=== PATIENT | male | born 1970 | race Caucasian/White ===

== ENCOUNTER 2019-05-08 19:29 | Inpatient (IN) | payer MEDICAID ==
[~2019-05-08] VITALS: Ht 170.2 cm; Wt 72.1 kg
[2019-05-08 19:57] VITALS: BP 143/86
[2019-05-08] MEDS ORDERED: ASPIRIN 81 MG TAB.CHEW PO ONE (20:10)
--- NOTE | 2019-05-08 20:15 | NUR ---
PT AMBULATED TO BED 11
--- NOTE | 2019-05-08 20:20 | NUR ---
EKG PERFORMED AT BEDSIDE
[2019-05-08 20:31] LABS: BASOPHILS % (AUTO) 0.2 % (0.0-2.0); EOSINOPHILS # (AUTO) 0.3 K/uL (0-0.4); EOSINOPHILS % (AUTO) 3.9 % (0.0-4.0); HEMATOCRIT 44.6 % (36-52); HEMOGLOBIN 14.8 g/dL (12.0-18.0); LYMPHOCYTES # (AUTO) 1.2 K/uL (2.0-11.5); LYMPHOCYTES % (AUTO) 17.1 % (20.5-51.1); MEAN CORPUSCULAR HEMOGLOBIN 29 pg (27-31); MEAN CORPUSCULAR HGB CONC 33 g/dL (33-37); MONOCYTES # (AUTO) 0.8 K/uL (0.8-1.0); MONOCYTES % (AUTO) 11.2 % (1.7-9.3); NEUTROPHILS # (AUTO) 4.9 K/uL (1.8-7.7); NEUTROPHILS % (AUTO) 67.6 % (42.2-75.2); PLATELET COUNT (AUTO) 202 K/uL (140-450); RED BLOOD CELL COUNT(AUTO) 5.18 MIL/uL (4.20-6.10); RED CELL DISTRIBUTION WIDTH 13.7 % (11.6-13.7); WHITE BLOOD COUNT (AUTO) 7.3 K/uL (4.8-10.8)
[2019-05-08 20:45] LABS: ANION GAP 13.6 (8-16); CARBON DIOXIDE 26.5 mmol/L (21-32); POTASSIUM 4.1 mmol/L (3.5-5.1)
--- NOTE | 2019-05-08 20:45 | NUR ---
BIB SELF WITH REPORTS OF GETTING SHORT OF BREATH AFTER WALKING SHORT DISTANCE AND CHEST PAIN FOR THE LAST 2 WEEKS. STATES FOR THE PAST TWO DAYS IT HAS BEEN GETTING WORSE MAXX. WHEN HE COUGHS. PT AAO X4, GCS 15, ABLE TO SPEAK WITH FULL COMPLETE SENTENCES. RESPIATIONS EVEN AND UNLABORED, BL LUNG CLEAR. C/O NON PRODUCTIVE COUGH. SKIN WARM/PINK/DRY, +PMSC. ABDOMEN SOFT, NON DISTENDED, ACTIVE [place] SOUND X4. MCAT TUTOR SR, BP WNL. ED PROVIDER MADE AWARE OF PT STATUS. WILL CONTINUE TO MONITOR
[2019-05-08] MEDS ORDERED: predniSONE 20 MG TAB PO ONE (21:05)
[2019-05-08] MEDS ORDERED: ALBUTEROL SULFATE/IPRATROPIU 3 ML SOL IH ONE (21:05)
[2019-05-08] MEDS ORDERED: KETOROLAC 30 MG/ML VIAL IVP ONE (21:05)
[2019-05-08] MEDS ORDERED: NITROGLYCERIN 0.4 MG TAB SL ONE (21:50)
[2019-05-08] MEDS ORDERED: ZOLPIDEM 5 MG TAB PO PRN (22:00)
[2019-05-08] MEDS ORDERED: ACETAMINOPHEN 325 MG TAB PO PRN (22:00)
[2019-05-08] MEDS ORDERED: LORazepam 2 MG/ML VIAL IM/IVP PRN (22:00)
[2019-05-08] MEDS ORDERED: ONDANSETRON 4 MG/2 ML VIAL IM/IVP PRN (22:00)
[2019-05-08] MEDS ORDERED: DOCUSATE SODIUM 100 MG GELCAP PO PRN (22:00)
[2019-05-08] MEDS ORDERED: IBUP-2213 PO (22:11)
--- NOTE | 2019-05-08 22:16 | NUR ---
NTG 0.4 MG SL GIVEN BP 146/80 HR 95
--- NOTE | 2019-05-08 22:21 | NUR ---
CP NOT RELIEVED 2ND DOSE NTG 0.4 MG SL GIVEN, BP 122/82, HR 102
--- NOTE | 2019-05-08 22:26 | NUR ---
CP NOT RELIEVED 3RD DOSE OF NTG 0.4 MG SL GIVEN, BP 105/75, HR 108
[2019-05-08 22:38] LABS: PROTHROMBIN TIME 9.7 secs (10.8-13.4)
--- NOTE | 2019-05-08 22:42 | NUR ---
Patient will be admitted to care of . Admited to TELEMETRY. Will go to [email or web address]. Belongings list completed. Report to AROLDO.
[2019-05-08 22:50] VITALS: BP 130/76
--- NOTE | 2019-05-08 22:50 | NUR ---
ADMITTED A 48 YEAR OLD MALE FROM ED VIA GURNEY. RECEIVED REPORT FROM ED NURSE. PATIENT ALERT AND ORIENTED X4. NO APPARENT DISTRESS NOTED. WITH C/O CHEST PAIN 6/10. WILL MEDICATE PER PAIN SCALE. SAFETY ENSURED. AMBULATORY TO THE BATHROOM WITH STAND BY ASSIST. WITH IV ON RIGHT HAND 18G. ON SALINE LOCK. INTRODUCED SELF AND UPDATED BOARD. REVIEWED PLAN OF CARE WITH PATIENT. VERBALIZED UNDERSTANDING. ORIENTED TO ROOM, CALL LIGHT, HOSPITAL ROUTINE AND ENVIRONMENT. WILL CONTINUE TO MONITOR. V/S=130/76, 98% ON ROOM AIR, 98, 99.1 AND 20.
[2019-05-08] MEDS ORDERED: KETOROLAC 15 MG/ML VIAL IVP PRN (22:55)
[2019-05-08] MEDS: NACL 0.9% 1,000 ML IV SCH (23:04)
[2019-05-08 23:13] LABS: ALBUMIN 4.3 g/dL (3.4-5.0); MAGNESIUM 2.1 mg/dL (1.8-2.4); PHOSPHORUS 3.8 mg/dL (2.5-4.9); THYROID STIMULATING HORMONE 2.14 uIU/mL (0.34-3.74); TOTAL BILIRUBIN 0.7 mg/dL (0.0-1.0)
[2019-05-08 23:29] LABS: BILIRUBIN,DIRECT 0.2 mg/dL (0.0-0.3)
[2019-05-08] MEDS: HYDROcodone/APAP 5/325 MG 1 TAB TAB PO PRN (23:29)
--- NOTE | 2019-05-08 23:55 | NUR ---
PATIENT WENT OFF OF UNIT FOR CT SCAN. LEFT IN STABLE CONDITION.
[2019-05-09] VITALS: BP 120/72
--- NOTE | 2019-05-09 00:15 | NUR ---
PATIENT CAME BACK FROM CT SCAN IN STABLE CONDITION.
[2019-05-09 00:44] LABS: APPEARANCE,URINE CLEAR (CLEAR); BILIRUBIN,URINE NEGATIVE (NEGATIVE); BLOOD, URINE NEGATIVE (NEGATIVE); COLOR,URINE YELLOW (YELLOW); LEUKOCYTE ESTERASE ,URINE NEGATIVE (NEGATIVE); NITRITE, URINE NEGATIVE (NEGATIVE); UGLUCOSE NEGATIVE (NEGATIVE)
[2019-05-09 00:48] LABS: BARBITURATE, URINE NEG. ng/ml (NEG <=200); BENZODIAZEPINE, URINE NEG. ng/mL (NEG <=200); CANNABINOID, URINE POS. ng/mL (NEG <=50); COCAINE, URINE NEG. ng/mL (NEG <=300); OPIATE, URINE NEG. ng/mL (NEG <=2000); PHENCYCLIDINE SCREEN,URINE NEG. ng/mL (NEG <=25)
--- NOTE | 2019-05-09 01:30 | NUR ---
PATIENT AWAKE IN BED, WATCHING TV. NO APPARENT DISTRESS NOTED. WILL CONTINUE TO MONITOR.
[2019-05-09] MEDS ORDERED: ALUMINUM HYD/MAG/SIMETHICONE 30 ML UDC PO SCH ×2 (02:00→20:45)
[2019-05-09] MEDS: MORPHINE SULFATE 2 MG/ML SYR IVP PRN ×4 (02:49→23:16)
--- NOTE | 2019-05-09 03:00 | NUR ---
ADMITTED A 48 YEAR OLD MALE FROM ED VIA GURNEY. RECEIVED REPORT FROM ED NURSE. PATIENT ALERT AND ORIENTED X4. NO APPARENT DISTRESS NOTED. WITH C/O CHEST PAIN 10/22. WILL MEDICATE PER PAIN SCALE. SAFETY ENSURED. AMBULATORY TO THE BATHROOM WITH STAND BY ASSIST. WITH IV ON RIGHT HAND 18G. ON SALINE LOCK. INTRODUCED SELF AND UPDATED BOARD. REVIEWED PLAN OF CARE WITH PATIENT. VERBALIZED UNDERSTANDING. ORIENTED TO ROOM, CALL LIGHT, HOSPITAL ROUTINE AND ENVIRONMENT. WILL CONTINUE TO MONITOR. V/S=130/76, 98% ON ROOM AIR, 98, 99.1 AND 20. Addendum: 05/09/19 at 0308 by Sebastián Bermudez RN NOTE ENTERED AT WRONG TIME. NOTE IS FOR 05/08/19 3094
--- NOTE | 2019-05-09 03:13 | NUR ---
PATIENT AWAKE IN BED, RESTING. NO APPARENT DISTRESS NOTED. WILL CONTINUE TO MONITOR.
[2019-05-09 04:00] VITALS: BP 110/69
--- NOTE | 2019-05-09 05:10 | NUR ---
PATIENT AWAKE IN BED. NO APPARENT DISTRESS NOTED. WILL CONTINUE TO MONITOR.
[2019-05-09 06:02] LABS: BASOPHILS % (AUTO) 0.1 % (0.0-2.0); HEMATOCRIT 40.8 % (36-52); HEMOGLOBIN 13.4 g/dL (12.0-18.0); LYMPHOCYTES # (AUTO) 0.4 K/uL (2.0-11.5); LYMPHOCYTES % (AUTO) 5.6 % (20.5-51.1); MEAN CORPUSCULAR HEMOGLOBIN 28 pg (27-31); MEAN CORPUSCULAR HGB CONC 33 g/dL (33-37); MEAN CORPUSCULAR VOLUME 86.1 fL (80-94); MONOCYTES # (AUTO) 0.2 K/uL (0.8-1.0); MONOCYTES % (AUTO) 2.4 % (1.7-9.3); NEUTROPHILS % (AUTO) 91.9 % (42.2-75.2); PLATELET COUNT (AUTO) 200 K/uL (140-450); RED BLOOD CELL COUNT(AUTO) 4.73 MIL/uL (4.20-6.10); RED CELL DISTRIBUTION WIDTH 13.4 % (11.6-13.7); WHITE BLOOD COUNT (AUTO) 6.6 K/uL (4.8-10.8)
[2019-05-09] MEDS: HYDROcodone/APAP 5/325 MG 1 TAB TAB PO PRN ×2 (06:13→12:08)
[2019-05-09] MEDS: PANTOPRAZOLE 40 MG TABEC PO SCH (06:14)
--- NOTE | 2019-05-09 07:05 | NUR ---
ENDORSED TO NEXT SHIFT FOR CONTINUITY OF CARE.
[2019-05-09 07:06] LABS: ANION GAP 18.4 (8-16); CARBON DIOXIDE 22.9 mmol/L (21-32); POTASSIUM 5.3 mmol/L (3.5-5.1)
[2019-05-09 07:11] LABS: MAGNESIUM 2.1 mg/dL (1.8-2.4); PHOSPHORUS 2.1 mg/dL (2.5-4.9)
--- NOTE | 2019-05-09 07:20 | NUR ---
RECEIVED BEDSIDE REPORT FROM LABORATORY SECRETARY NURSE, PT IS AWAKE AND ALERT, NO S/S OF ACUTE DISTRESS OR C/O PAIN. PT IS ON ROOM AIR, SKIN INTACT. IV SITE R FA 18 G, INFUSING NS 60 ML/HR. FALL PRECAUTIONS IN PLACE, HOWEVER, PT IS ABLE TO AMBULATE. CALL LIGHT IS WITHIN REACH. WILL CONTINUE TO MONITOR.
[2019-05-09 08:00] VITALS: BP 114/61
--- NOTE | 2019-05-09 08:02 | NUR ---
PT IS HAVING ABD US AT THIS TIME.
--- NOTE | 2019-05-09 08:51 | NUR ---
PT SEEN BY DR ESTRADA
[2019-05-09] MEDS: LISINOPRIL 5 MG TAB PO SCH (08:58)
[2019-05-09] MEDS: ASPIRIN 81 MG TAB.CHEW PO SCH (08:59)
[2019-05-09] MEDS: METOPROLOL 25 MG TAB PO SCH ×2 (08:59→20:23)
--- NOTE | 2019-05-09 09:06 | NUR ---
PATIENT HAS BEEN SCREENED AND CATEGORIZED LOW NUTRITION RISK. PATIENT WILL BE SEEN WITHIN 5-7 DAYS OF ADMISSION. 05/13/19-05/15/[address]
[2019-05-09] MEDS ORDERED: CRUSHER, PILL MC ONE (09:11)
--- NOTE | 2019-05-09 09:24 | NUR ---
AM MEDS ADMINISTERED, PT TOLERATED WELL. PT WAS C/O 8/10 ABD PAIN AND HEADACHE, PRN IV MORPHINE ADMINISTERED. WILL REASSESS WITHIN AN HOUR
[2019-05-09] MEDS ORDERED: SODIUM POLYSTYRENE 15 GM/60 ML UDBTL PO SCH ×2 (09:55→11:55)
[2019-05-09] MEDS ORDERED: SODIUM PHOSPHATE 15 MMOLE in NACL 0.9% 250 ML IV ONE (10:30)
[2019-05-09] MEDS ORDERED: ALBUTEROL SULFATE/IPRATROPIU 3 ML SOL IH PRN (11:35)
[2019-05-09] MEDS ORDERED: methylPREDNISolone SS 40 MG/ML VIAL IVP SCH (11:52)
[2019-05-09 12:00] VITALS: BP 120/81
--- NOTE | 2019-05-09 12:59 | NUR ---
[employer] [employer] Note: Basic Screen: Yes High Risk DC Screen [place]: BRYAN Hooper Relationship: FRIEND Pre-Admission Living Arrangements: Lives with Other Prior ADL Independent Current Home Health Name/Tel: N/A Current DME/02 Name/Tel: N/A Current Hospice Name/Tel: N/A Current Dialysis Name/Tel: N/A Healthcare Decision Maker: Patient Advance Directive No - REFUSED Physician Orders for Life Sustaining Treatment Form No Patient/Family Have Educational Needs No Information Taught: Advance Directive Person Taught: Patient Teaching Tools: Verbal Factors Affecting Learning: None Participation Level: Refused Evaluation: Verbalizes Understanding Needs Additional Education: No Discipline: Case Mgt/Social Svcs Tentative Discharge Plan/Destination: No Needs Identified Will require assistance post discharge: No Referred to [employer] Finisher: No Tentative Discharge Plan Summary: Patient is a 48-year-old male admitted for chest pain. Patient has no significant PMHX. Patient was admitted from home, where he rents a room with roommates. SW met with patient at bedside to verify demographics. Patient reports no history of mental health. Patient reports drinking alcohol 1x a month and reports no other substance use. Patient stated that he has no PCP and requested resources. SW provided low cost clinics resources to patient. SW provided education on advanced directive, but patient refused. Patient's tentative discharge plan is to return home. No further needs identified. Signature: ELDER Castillo Date: May 09, 2019 Time: 12:56
--- NOTE | 2019-05-09 13:01 | NUR ---
OBTAINED PT'S CONSENT FOR CT CHEST WITH CONTRAST.
[2019-05-09] MEDS: ALBUTEROL SULFATE/IPRATROPIU 3 ML SOL IH SCH ×2 (13:38→19:40)
--- NOTE | 2019-05-09 13:51 | NUR ---
PT TAKEN OFF UNIT FOR CHEST CT WITH CONTRAST.
--- NOTE | 2019-05-09 14:50 | NUR ---
GOT A CALL FROM RADIOLOGY, THEY COULD NOT DO IV CONTRAST CT SCAN BECAUSE PT'S IV HAS MALFUNCTIONED. WILL START A NEW IV SITE AND ATTEMPT CT SCAN AGAIN.
--- NOTE | 2019-05-09 15:03 | NUR ---
DC PLANNING 48 YRS OLD MALE PATIENT WAS ADMITTED FROM HOME WITH A DX OF CHEST PAIN R/O ACS . PT HAS A HX OF HTN AND ALCOHOL ABUSE. AMBULATORY AT BASELINE TROPX3 (-) , EKG SINUS RHYTHM RT PROTOCOL INITIATED CT HEAD (-) SEEN BY DATA ACQUISITION TECHNICIAN DR DUMONT RECOMMENDED FOLLOW UP ECHO AND CT CHEST , PULMO CONSULT ORDERED . DC PLAN TO GO HOME WHEN STABLE .CM TO FOLLOW.
--- NOTE | 2019-05-09 15:35 | NUR ---
STARTED NEW IV ON L AC, 20 G.
[2019-05-09 16:00] VITALS: BP 128/75
[2019-05-09] MEDS: NACL 0.9% 1,000 ML IV SCH (16:01)
--- NOTE | 2019-05-09 17:00 | NUR ---
PT TAKEN TO CT CHEST/ABD/PELVIS WITH IV CONTRAST.
--- NOTE | 2019-05-09 17:45 | NUR ---
PT BACK FROM CT SCAN AND PLACED ON A CARDIAC DIET. WILL ORDER LATE DINNER TRAY FOR PT.
--- NOTE | 2019-05-09 19:20 | NUR ---
ENDORSED PT TO INDUSTRIAL CONVEYOR BELT REPAIRER NURSE IN STABLE CONDITION
--- NOTE | 2019-05-09 19:22 | NUR ---
REPORT RECEIVED FROM AM NURSE AT BEDSIDE. PT IN STABLE CONDITION. AAOX4. INTRODUCED SELF TO PT. BOARD UPDATED. NO COMPLAINT OF PAIN. ALREADY MEDICATED. NO SOB. AFEBRILE. PT IS AMBULATORY. IV SITE L AC 20G RUNNING NS@60ML/HR PATENT AND INTACT. SKIN WARM, DRY, AND INTACT WITH NO OPEN WOUNDS. BED LOCKED IN LOW POSITION. CALL REYNOSO WITHIN REACH. SAFETY PRECAUTION IN PLACE. ALL NEEDS MET AT THIS TIME.
[2019-05-09 20:00] VITALS: BP 115/72
[2019-05-09] MEDS: NITROGLYCERIN 0.4 MG TAB SL PRN ×2 (20:09→20:14)
--- NOTE | 2019-05-09 20:09 | NUR ---
PT COMPLAINING OF CHEST PAIN. NITROSTAT GIVEN. PT TOLERATED WELL.
--- NOTE | 2019-05-09 20:14 | NUR ---
PT STILL COMPLAINING OF CHEST PAIN. SECOND DOSE OF NITROSTAT GIVEN. PT TOLERATED WELL.
[2019-05-09] MEDS: ATORVASTATIN 20 MG TAB PO SCH (20:22)
[2019-05-09] MEDS: methylPREDNISolone SS 40 MG/ML VIAL IVP SCH (20:22)
--- NOTE | 2019-05-09 20:22 | NUR ---
LIPITOR AND LOPRESSOR GIVEN PO. SOLUMEDROL GIVEN IVP. HEPARIN GIVEN SUBQ. PT TOLERATED WELL.
--- NOTE | 2019-05-09 20:30 | NUR ---
NOTIFIED OF CHEST PAIN. NEW ORDERS STAT EKG. STAT TROPONIN. ONE TIME ORDER FOR TORADOL.
[2019-05-09] MEDS ORDERED: KETOROLAC 30 MG/ML VIAL IVP SCH (20:35)
--- NOTE | 2019-05-09 20:46 | NUR ---
TORADOL GIVEN FOR 10/10 CHEST PAIN. PT TOLERATED WELL.
--- NOTE | 2019-05-09 22:13 | NUR ---
MAALOX GIVEN PO. PT TOLERATED WELL.
--- NOTE | 2019-05-09 23:16 | NUR ---
MORPHINE GIVEN FOR 8/10 CHEST PAIN. PT TOLERATED WELL.
[2019-05-10] VITALS: BP 105/70
--- NOTE | 2019-05-10 01:30 | NUR ---
PT SLEEPING COMFORTABLY BUT AROUSABLE. NO S/S OF DISTRESS NOTED. NO COMPLAINTS OF PAIN. NO SOB. AFEBRILE. WILL CONTINUE TO MONITOR.
--- NOTE | 2019-05-10 03:30 | NUR ---
PT SLEEPING COMFORTABLY BUT AROUSABLE. NO S/S OF DISTRESS NOTED. VS STABLE. TELE MONITORING. WILL CONTINUE TO MONITOR.
[2019-05-10 04:00] VITALS: BP 104/61
--- NOTE | 2019-05-10 04:45 | NUR ---
PT SLEEPING COMFORTABLY BUT AROUSABLE. NO S/S OF DISTRESS NOTED. RESPIRATIONS EVEN, UNLABORED, AND WNL. WILL CONTINUE TO MONITOR.
[2019-05-10] MEDS ORDERED: BENZOCAINE/MENTHOL 1 LOZ MM PRN (05:25)
[2019-05-10] MEDS: PANTOPRAZOLE 40 MG TABEC PO SCH (05:31)
--- NOTE | 2019-05-10 05:31 | NUR ---
PROTONIX GIVEN PO. NORCO GIVEN FOR 5/10 MIDDLE BACK PAIN. PT TOLERATED WELL. CEPACOL GIVEN FOR A SORE THROAT.
[2019-05-10] MEDS: HYDROcodone/APAP 5/325 MG 1 TAB TAB PO PRN ×2 (05:32→14:19)
[2019-05-10 06:20] LABS: HEMATOCRIT 40.2 % (36-52); HEMOGLOBIN 13.2 g/dL (12.0-18.0); LYMPHOCYTES # (AUTO) 0.8 K/uL (2.0-11.5); LYMPHOCYTES % (AUTO) 11.5 % (20.5-51.1); MEAN CORPUSCULAR HEMOGLOBIN 28 pg (27-31); MEAN CORPUSCULAR HGB CONC 33 g/dL (33-37); MONOCYTES # (AUTO) 0.4 K/uL (0.8-1.0); MONOCYTES % (AUTO) 5.9 % (1.7-9.3); NEUTROPHILS # (AUTO) 5.5 K/uL (1.8-7.7); NEUTROPHILS % (AUTO) 82.6 % (42.2-75.2); PLATELET COUNT (AUTO) 212 K/uL (140-450); RED BLOOD CELL COUNT(AUTO) 4.68 MIL/uL (4.20-6.10); RED CELL DISTRIBUTION WIDTH 13.8 % (11.6-13.7); WHITE BLOOD COUNT (AUTO) 6.7 K/uL (4.8-10.8)
[2019-05-10 06:29] LABS: ANION GAP 16.9 (8-16); CARBON DIOXIDE 24.2 mmol/L (21-32); POTASSIUM 4.1 mmol/L (3.5-5.1)
[2019-05-10 06:35] LABS: MAGNESIUM 2.1 mg/dL (1.8-2.4); PHOSPHORUS 3.7 mg/dL (2.5-4.9)
--- NOTE | 2019-05-10 06:55 | NUR ---
PT AWAKE AND ALERT WATCHING TV. PT IN STABLE CONDITION.
--- NOTE | 2019-05-10 07:10 | NUR ---
RECEIVED REPORT FROM NIGHT NURSE. PATIENT IS FULL CODE, NKA, AMBULATORY, AAOX4, PATIENT IS ON ROOM AIR, AWAKE IN BED, NO SIGNS OF RESPIRATORY DISTRESS. IV LEFT AC 20G WITH NS INFUSING AT 60MLS/HR. WILL REVIEW AND CONTINUE WITH THE PLAN OF CARE FOR THE DAY.
[2019-05-10] MEDS: ALBUTEROL SULFATE/IPRATROPIU 3 ML SOL IH SCH ×3 (07:27→20:10)
[2019-05-10 08:00] VITALS: BP 128/78
[2019-05-10] MEDS: NACL 0.9% 1,000 ML IV SCH (08:20)
[2019-05-10] MEDS: LISINOPRIL 5 MG TAB PO SCH (08:39)
[2019-05-10] MEDS: ASPIRIN 81 MG TAB.CHEW PO SCH (08:40)
[2019-05-10] MEDS: methylPREDNISolone SS 40 MG/ML VIAL IVP SCH ×2 (08:42→21:06)
[2019-05-10] MEDS: METOPROLOL 25 MG TAB PO SCH ×2 (08:42→21:07)
--- NOTE | 2019-05-10 08:50 | NUR ---
ADMINISTERED MEDS TO PATIENT. PO MEDS TOLERATED WELL. ADMINISTERED MORPHINE FOR PAIN 11/21. BP IS 128/78. WILL CONTINUE MONITORING
[2019-05-10] MEDS: MORPHINE SULFATE 2 MG/ML SYR IVP PRN ×2 (08:57→18:37)
[2019-05-10 12:00] VITALS: BP 115/77
--- NOTE | 2019-05-10 13:40 | NUR ---
BEATRIZ VINCENT IN ECHO WITH BUBBLE STUDIES. PATIENT IS SITTING UP IN BED, NO COMPLAINTS AT THIS TIME.
--- NOTE | 2019-05-10 14:20 | NUR ---
PT COMPLAINED OF CHEST PAIN 10/22. OFFERED NITROSTAT BUT PATIENT REQUESTED NORCO FOR THE PAIN. WILL RE ASSESS PAIN LEVEL.
[2019-05-10 16:00] VITALS: BP 132/72
[2019-05-10] MEDS ORDERED: AZITHROMYCIN 250 MG TAB PO SCH (18:00)
[2019-05-10] MEDS: guaiFENesin DM 200/20 MG-10 ML 10 ML UDC PO PRN (18:37)
--- NOTE | 2019-05-10 18:43 | NUR ---
ADMINISTERED EVENING MEDS. GAVE PRN ROBITUSSIN FOR COUGH AND MORPHINE FOR PAIN 11/21. WILL REASSESS PAIN LEVEL AND ENDORSED TO THE NEXT NURSE FOR CONTINUITY OF CARE.
--- NOTE | 2019-05-10 19:11 | NUR ---
RECIEVED PT AAOX4. NID , IV SITE INTACT AND PATENT. ON DIRECTOR MEDICAL SURGICAL. NO S/SXS OF ACUTE DISTRESS NOTED AT THIS TIME. PLAN OF CARE DISCUSSED AND VERBALIZED UNDERSTANDING. ON SAFETY PRECAUTION PROTOCOL - CALL LIGHT WITHIN REACH. REQUESTING FOR A SHOWER TONIGHT - WILL REFER TO BULMARO Zaragoza
--- NOTE | 2019-05-10 19:30 | NUR ---
ALTHOUGH BULMARO ALLOW PT. TO HAVE A SHOWER , BUT THE RESPIRATORY SAID IS NOT PREFERABLE THE PT. TO HAVE A SHOWER BECAUSE THERE IS WHEEZES ON LUNG UPON CHEST AUSCULTATION - EXPLAINED TO PT. - DEFER TO HAVE A SHOWER - THE POTTERY MACHINE OPERATOR WILL GIVE SPOUNGE BATH INSTEAD . WILL CONT. TO MONITOR.
--- NOTE | 2019-05-10 19:45 | NUR ---
RECEIVED REPORT FROM RICHARD WILLIAMSON FOR CONTINUITY OF CARE. PATIENT IN STABLE CONDITION. WILL CONTINUE TO MONITOR.
--- NOTE | 2019-05-10 19:45 | NUR ---
ENDORSED TO NARCISO FOR CONT. OF CARE , WITH STABLE CONDITION.
[2019-05-10 20:00] VITALS: BP 127/70
[2019-05-10] MEDS: BUDESONIDE 0.5 MG/2 ML NEBU INH SCH (20:10)
[2019-05-10] MEDS: ATORVASTATIN 20 MG TAB PO SCH (21:07)
--- NOTE | 2019-05-10 21:16 | NUR ---
PATIENT SITTING IN BED WITH COMPLAINTS OF ANXIETY AFTER BREATHING TREATMENT. ATIVAN GIVEN AT THIS TIME AND OTHER SCHEDULED MEDICATIONS DUE GIVEN. WILL CONTINUE TO MONITOR.
[2019-05-11] VITALS: BP 114/65
[2019-05-11] MEDS: NACL 0.9% 1,000 ML IV SCH ×2 (00:47→06:51)
[2019-05-11] MEDS: HYDROcodone/APAP 5/325 MG 1 TAB TAB PO PRN ×3 (00:48→14:01)
[2019-05-11] MEDS: guaiFENesin DM 200/20 MG-10 ML 10 ML UDC PO PRN (00:48)
--- NOTE | 2019-05-11 00:52 | NUR ---
PATIENT LYING DOWN IN BED USING HIS PHONE. NO DISTRESS NOTED. COMPLAINS OF PAIN, NORCO GIVEN AT THIS TIME. COUGH MEDICATION ALSO GIVEN AT THIS TIME DUE TO COUGH. WILL CONTINUE TO MONITOR.
[2019-05-11] MEDS ORDERED: INFLUENZA VACCINE QUAD 0.5 ML SYR IMVAC PRN (01:10)
--- NOTE | 2019-05-11 02:30 | NUR ---
PATIENT LYING DOWN IN BED SLEEPING, AROUSABLE BY VOICE. CONDITION UNCHANGED. WILL CONTINUE TO MONITOR.
[2019-05-11 04:00] VITALS: BP 109/63
--- NOTE | 2019-05-11 04:15 | NUR ---
PATIENT LYING DOWN IN BED SLEEPING, AROUSABLE BY VOICE. NO DISTRESS NOTED. CONDITION UNCHANGED. DENIES PAIN. WILL CONTINUE TO MONITOR.
[2019-05-11] MEDS: PANTOPRAZOLE 40 MG TABEC PO SCH (05:45)
--- NOTE | 2019-05-11 05:46 | NUR ---
PATIENT LYING DOWN IN BED SLEEPING, AROUSABLE BY VOICE. NO DISTRESS NOTED. DENIES ANY PAIN. SCHEDULED MEDICATIONS DUE GIVEN. WILL CONTINUE TO MONITOR.
--- NOTE | 2019-05-11 07:20 | NUR ---
RECEIVED BEDSIDE REPORT FROM REGISTERED DIETITIAN NURSE NARCISO, PT IS AWAKE AND ALERT, NO S/S OF ACUTE DISTRESS OR SOB. PT IS ON ROOM AIR, SKIN INTACT. IV SITE L AC 18 G, INFUSING NS 60 ML/HR. FALL PRECAUTIONS IN PLACE. CALL LIGHT IS WITHIN REACH.
[2019-05-11] MEDS: ALBUTEROL SULFATE/IPRATROPIU 3 ML SOL IH SCH ×2 (07:22→13:13)
[2019-05-11] MEDS: BUDESONIDE 0.5 MG/2 ML NEBU INH SCH (07:22)
--- NOTE | 2019-05-11 07:27 | NUR ---
GAVE REPORT TO AM SHIFT NURSE FOR CONTINUITY OF CARE. PATIENT IN STABLE CONDITION.
[2019-05-11 08:00] VITALS: BP 132/86
[2019-05-11] MEDS ORDERED: CRUSHER, PILL MC ONE (09:03)
[2019-05-11] MEDS: methylPREDNISolone SS 40 MG/ML VIAL IVP SCH (09:04)
[2019-05-11] MEDS: LISINOPRIL 5 MG TAB PO SCH (09:05)
[2019-05-11] MEDS: METOPROLOL 25 MG TAB PO SCH (09:05)
[2019-05-11] MEDS: ASPIRIN 81 MG TAB.CHEW PO SCH (09:05)
--- NOTE | 2019-05-11 09:18 | NUR ---
AM MEDS ADMINISTERED, PT TOLERATED WELL. ADMINISTERED THE PRN NORCO FOR PAIN 10/22
[2019-05-11] MEDS ORDERED: ALBU0.0912 IH (11:39)
[2019-05-11] MEDS ORDERED: METH4TAB1 PO (11:39)
[2019-05-11] MEDS ORDERED: AZIT250T3 PO (11:39)
[2019-05-11 12:00] VITALS: BP 121/72
--- NOTE | 2019-05-11 13:17 | NUR ---
PT GETTING A BREATHING TX AT THIS TIME.
--- NOTE | 2019-05-11 16:30 | NUR ---
PT HAS DC'D. PT WAS GIVEN DC INSTRUCTIONS AND EXPLANATION OF HIS PRESCRIPTIONS. HE VERBALIZED UNDERSTANDING OF TEACHING, AND HAD NO EXTRA QUESTIONS. IV SITE AND WRIST BAND WERE REMOVED. PT WAS GIVEN A FLU SHOT UPON DC. PT LEFT WITH HIS SON WITH ALL HIS BELONGINGS, IN STABLE CONDITION.
[2019-05-11] MEDS ORDERED: AZITHROMYCIN 250 MG TAB PO SCH ×2 (17:00→18:00)
== END 2019-05-11 16:30 | disposition home or self-care (01) | DRG 140 ==
LOC: MED 19:29 → MTU 21:56
PROVIDERS: ADMIT General Practice; ATTEND General Practice
DX: J44.1 Chronic obstructive pulmonary disease with (acute) exacerbation (principal); E83.39 Other disorders of phosphorus metabolism; K76.0 Fatty (change of) liver, not elsewhere classified; M94.0 Chondrocostal junction syndrome [Tietze]; R51 Headache; J40 Bronchitis, not specified as acute or chronic; E87.5 Hyperkalemia; F12.10 Cannabis abuse, uncomplicated; N28.1 Cyst of kidney, acquired; I10 Essential (primary) hypertension; Z87.891 Personal history of nicotine dependence; Z23 Encounter for immunization; Z79.899 Other long term (current) drug therapy; Z71.51 Drug abuse counseling and surveillance of drug abuser
CPT/HCPCS: 36415; 36600; 70450; 71046; 71270; 76700; 80048; 80076; 80305; 81003; 82803; 83036; 83690; 83735; 84100; 84134; 84443; 84484; 85025; 85610; 85730; 87081; 87804; 93005; 94640; 96372; 99285; G0482; J1644; J1885; J2060; J2270; J2920; J7030; J7512; J7620; J7626; Q0092; Q9967

== ENCOUNTER 2019-05-13 15:27 | Emergency (ER) | payer MEDICAID ==
[~2019-05-13] VITALS: Ht 170.2 cm; Wt 72.6 kg
[~2019-05-13 15:27] MED LIST: ALBU0.0912 IH; AZIT250T3 PO; IBUP-2213 PO; METH4TAB1 PO
[2019-05-13 15:38] VITALS: BP 134/88
--- NOTE | 2019-05-13 15:47 | NUR ---
[facility]
--- NOTE | 2019-05-13 16:11 | NUR ---
AMB TO BED 06 WITH EVEN STEADY GAIT
--- NOTE | 2019-05-13 16:14 | NUR ---
AAO X4 48 YR OLD M W/ C/O GENERALIZED AB PAIN WITH DIARRHEA. ABDOMEN FIRM TO TOUCH ADMITTED ON April PMH- COPD, KIDNEY DISEASE
[2019-05-13 16:25] LABS: BASOPHILS % (AUTO) 0.3 % (0.0-2.0); EOSINOPHILS % (AUTO) 0.2 % (0.0-4.0); HEMATOCRIT 44.8 % (36-52); LYMPHOCYTES % (AUTO) 13.2 % (20.5-51.1); MEAN CORPUSCULAR HEMOGLOBIN 28 pg (27-31); MEAN CORPUSCULAR HGB CONC 34 g/dL (33-37); MEAN CORPUSCULAR VOLUME 84.1 fL (80-94); MONOCYTES # (AUTO) 0.3 K/uL (0.8-1.0); MONOCYTES % (AUTO) 4.4 % (1.7-9.3); NEUTROPHILS # (AUTO) 6.3 K/uL (1.8-7.7); NEUTROPHILS % (AUTO) 81.9 % (42.2-75.2); PLATELET COUNT (AUTO) 253 K/uL (140-450); RED BLOOD CELL COUNT(AUTO) 5.32 MIL/uL (4.20-6.10); RED CELL DISTRIBUTION WIDTH 13.4 % (11.6-13.7); WHITE BLOOD COUNT (AUTO) 7.7 K/uL (4.8-10.8)
[2019-05-13] MEDS ORDERED: ALBUTEROL SULFATE/IPRATROPIU 3 ML SOL IH ONE ×2 (16:35→17:55)
[2019-05-13 16:48] LABS: ANION GAP 10.5 (8-16); CREATININE 0.9 mg/dL (0.7-1.3); POTASSIUM 3.5 mmol/L (3.5-5.1)
--- NOTE | 2019-05-13 16:49 | NUR ---
GUARD LIEUTENANT AT BEDSIDE
[2019-05-13 16:54] LABS: ALBUMIN 4.1 g/dL (3.4-5.0); TOTAL BILIRUBIN 0.6 mg/dL (0.0-1.0)
[2019-05-13] MEDS ORDERED: methylPREDNISolone SS 125 MG/2 ML VIAL IM ONE (17:55)
[2019-05-13] MEDS ORDERED: PROMETH/CODEINE 6.25-10MG/5ML 5 ML UDC PO ONE (17:55)
[2019-05-13] MEDS ORDERED: LEVOFLOXACIN 500 MG TAB PO ONE (17:55)
--- NOTE | 2019-05-13 18:00 | NUR ---
FOLLOW UP [facility] THERAPY AND RESPIRATORY DRUG GIVEN ORDERED ENCOURAGED PATIENT FOR INTERMITTENT DEEP BREATHING DURING THERAPY
[2019-05-13 18:26] VITALS: BP 147/98
--- NOTE | 2019-05-13 18:26 | NUR ---
Patient discharged with v/s stable. Written and verbal after care instructions given and explained. Patient alert, oriented and verbalized understanding of instructions. Ambulatory with steady gait. All questions addressed prior to discharge. ID band removed. Patient advised to follow up with PMD. Rx of Albuterol, Promethazine, Prednisone, Levaquin given. Patient educated on indication of medication including possible reaction and side effects. Opportunity to ask questions provided and answered.
[2019-05-13 18:56] LABS: APPEARANCE,URINE CLEAR (CLEAR); BILIRUBIN,URINE NEGATIVE (NEGATIVE); BLOOD, URINE NEGATIVE (NEGATIVE); COLOR,URINE YELLOW (YELLOW); LEUKOCYTE ESTERASE ,URINE NEGATIVE (NEGATIVE); NITRITE, URINE NEGATIVE (NEGATIVE); UGLUCOSE NEGATIVE (NEGATIVE)
[2019-05-13 18:59] LABS: BARBITURATE, URINE NEG. ng/ml (NEG <=200); BENZODIAZEPINE, URINE NEG. ng/mL (NEG <=200); CANNABINOID, URINE POS. ng/mL (NEG <=50); COCAINE, URINE NEG. ng/mL (NEG <=300); OPIATE, URINE NEG. ng/mL (NEG <=2000); PHENCYCLIDINE SCREEN,URINE NEG. ng/mL (NEG <=25)
== END 2019-05-13 18:26 | disposition home or self-care (01) ==
LOC: MED 15:27
DX: J44.1 Chronic obstructive pulmonary disease with (acute) exacerbation (principal); R74.0 Nonspecific elevation of levels of transaminase and lactic acid dehydrogenase [LDH]; F41.9 Anxiety disorder, unspecified; Z79.899 Other long term (current) drug therapy
CPT/HCPCS: 36415; 71046; 74018; 80053; 80305; 81003; 83690; 84484; 85025; 87804; 93005; 94640; 96372; 99284; G0482; J2930; J7620

== ENCOUNTER 2019-05-28 19:22 | Emergency (ER) | payer MEDICAID ==
[~2019-05-28] VITALS: Ht 167.6 cm; Wt 73.0 kg
[2019-05-28 19:33] VITALS: BP 120/84
[2019-05-28] MEDS: ASPIRIN 81 MG TAB.CHEW PO ONE (21:50)
[2019-05-28 22:07] LABS: BASOPHILS % (AUTO) 0.6 % (0.0-2.0); EOSINOPHILS # (AUTO) 0.1 K/uL (0-0.4); EOSINOPHILS % (AUTO) 2.1 % (0.0-4.0); HEMATOCRIT 45.2 % (36-52); HEMOGLOBIN 14.8 g/dL (12.0-18.0); LYMPHOCYTES # (AUTO) 1.3 K/uL (2.0-11.5); LYMPHOCYTES % (AUTO) 25.9 % (20.5-51.1); MEAN CORPUSCULAR HEMOGLOBIN 28 pg (27-31); MEAN CORPUSCULAR HGB CONC 33 g/dL (33-37); MEAN CORPUSCULAR VOLUME 86.5 fL (80-94); MONOCYTES # (AUTO) 0.4 K/uL (0.8-1.0); MONOCYTES % (AUTO) 8.4 % (1.7-9.3); NEUTROPHILS # (AUTO) 3.2 K/uL (1.8-7.7); PLATELET COUNT (AUTO) 236 K/uL (140-450); RED BLOOD CELL COUNT(AUTO) 5.22 MIL/uL (4.20-6.10); RED CELL DISTRIBUTION WIDTH 13.9 % (11.6-13.7); WHITE BLOOD COUNT (AUTO) 5.1 K/uL (4.8-10.8)
[2019-05-28] MEDS: NITROGLYCERIN 0.4 MG TAB SL ONE (22:17)
[2019-05-28] MEDS: NACL 0.9% 1,000 ML IV ONE (22:18)
[2019-05-28 22:34] LABS: ALBUMIN 4.3 g/dL (3.4-5.0); CREATININE 0.9 mg/dL (0.7-1.3)
[2019-05-29] MEDS ORDERED: LIDOCAINE VISCOUS 2% 20 ML UDC ONE (00:07)
[2019-05-29] MEDS ORDERED: ALUMINUM HYD/MAG/SIMETHICONE 30 ML UDC ONE (00:07)
[2019-05-29] MEDS ORDERED: DICYCLOMINE HCL LIQUID 10 MG/5 ML UDC ONE (00:08)
[2019-05-29] MEDS: DICYCLOMINE HCL LIQUID 20 MG, ALUMINUM HYD/MAG/SIMETHICONE 30 ML, LIDOCAINE VISCOUS 2% ... PO ONE ×3 (00:14)
[2019-05-29] MEDS: KETOROLAC 30 MG/ML VIAL IVP ONE (00:14)
[2019-05-29 01:19] VITALS: BP 101/67
== END 2019-05-29 01:19 | disposition home or self-care (01) ==
LOC: MED 19:22
DX: R10.13 Epigastric pain (principal); J44.9 Chronic obstructive pulmonary disease, unspecified; Z79.899 Other long term (current) drug therapy
CPT/HCPCS: 36415; 70450; 71045; 80053; 84484; 85025; 93005; 96361; 96374; 99284; J1885; J7030; Q0092

== ENCOUNTER 2019-11-01 19:38 | Emergency (ER) | payer SELFPAY ==
[~2019-11-01] VITALS: Ht 167.6 cm; Wt 71.2 kg
[2019-11-01 19:45] VITALS: BP 124/79
--- NOTE | 2019-11-01 19:58 | NUR ---
EKG DONE. ANITAD MADE AWARE. PT IN LOBBY.
--- NOTE | 2019-11-01 20:32 | NUR ---
PT AMBULATED TO BED #11.
--- NOTE | 2019-11-01 20:35 | NUR ---
48 Y/O MALE PRESENTED TO ED C/O CHEST PAIN X 3 WEEKS. PT STATES UPON INSPIRATION AND EXPIRATION HIS LUNGS IN THE BACK START HURTING AND IT RADIATES TO PRESSURE ON THE MIDDLE OF HIS CHEST AND DOWN HIS LEFT ARM. PT STATES HE WAS HOSPITALIZED FOR THE SAME CHEST PAIN SYMPTOMS X 3 MONTHS AGO. PT STATES HE WAS DX AT THE ER FOR COPD BUT NEVER DID A FOLLOW UP W/ PCP. PT BREATHING EVEN AND UNLABORED. LUNG SOUND BL CLEAR. PT O2 SAT 98%. PT DENIES V/D/F. PT STATES THIS MORNING HE STARTED FEELING NAUSEA D/T PAIN. PT DENIES TAKING ANY MEDICATION. 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 PT VSS. PT RESTING IN BED, LOCKED AND IN LOWEST POSITION, HOB ELEVATED , SIDE RAIL X1 . PT CONNECTED TO CABBAGE SALTER , PULSE OX AND BP CUFF. PMH: COPD RX: DENIES NKA
[2019-11-01 21:05] LABS: BASOPHILS # (AUTO) 0.1 K/uL (0.00-0.22); BASOPHILS % (AUTO) 0.8 % (0.0-2.0); EOSINOPHILS # (AUTO) 0.2 K/uL (0-0.4); EOSINOPHILS % (AUTO) 2.9 % (0.0-4.0); HEMATOCRIT 45.8 % (36-52); HEMOGLOBIN 15.3 g/dL (12.0-18.0); LYMPHOCYTES # (AUTO) 1.8 K/uL (2.0-11.5); LYMPHOCYTES % (AUTO) 24.2 % (20.5-51.1); MEAN CORPUSCULAR HEMOGLOBIN 29 pg (27-31); MEAN CORPUSCULAR HGB CONC 34 g/dL (33-37); MEAN CORPUSCULAR VOLUME 86.9 fL (80-94); MONOCYTES # (AUTO) 0.4 K/uL (0.8-1.0); NEUTROPHILS # (AUTO) 4.9 K/uL (1.8-7.7); NEUTROPHILS % (AUTO) 66.1 % (42.2-75.2); PLATELET COUNT (AUTO) 228 K/uL (140-450); RED BLOOD CELL COUNT(AUTO) 5.27 MIL/uL (4.20-6.10); RED CELL DISTRIBUTION WIDTH 13.3 % (11.6-13.7); WHITE BLOOD COUNT (AUTO) 7.5 K/uL (4.8-10.8)
[2019-11-01 21:27] LABS: ALBUMIN 4.3 g/dL (3.4-5.0); ANION GAP 10.1 (8-16); CARBON DIOXIDE 31.1 mmol/L (21-32); CREATININE 0.9 mg/dL (0.6-1.3); POTASSIUM 4.2 mmol/L (3.5-5.1); TOTAL BILIRUBIN 1.4 mg/dL (0.0-1.0)
--- NOTE | 2019-11-01 22:52 | NUR ---
DR. SIERRA AT BEDSIDE FOR EVALUATION.
[2019-11-01] MEDS ORDERED: ALBUTEROL SULFATE/IPRATROPIU 3 ML SOL IH STA (23:01)
[2019-11-01] MEDS ORDERED: predniSONE 20 MG TAB PO STA (23:01)
[2019-11-01] MEDS ORDERED: AZITHROMYCIN 500 MG in DEXTROSE 5% 250 ML IV ONE (23:05)
--- NOTE | 2019-11-01 23:14 | NUR ---
SPOKE W/ DR. SIERRA , NO IV NECESSARY AT THIS TIME. IV MED AZITHROMYCIN CAN BE CHANGED TO PO MED.
--- NOTE | 2019-11-01 23:15 | NUR ---
RT AT BEDSIDE FOR TX.
[2019-11-01] MEDS ORDERED: AZITHROMYCIN 250 MG TAB PO ONE (23:20)
[2019-11-01] MEDS ORDERED: KETOROLAC 30 MG/ML VIAL ONE (23:39)
[2019-11-01] MEDS ORDERED: KETOROLAC 30 MG/ML VIAL IM ONE (23:40)
[2019-11-02 00:03] VITALS: BP 128/77
--- NOTE | 2019-11-02 00:03 | NUR ---
Patient discharged with v/s stable. Written and verbal after care instructions given and explained. Patient alert, oriented and verbalized understanding of instructions. Ambulatory with steady gait. All questions addressed prior to discharge. ID band removed. Patient advised to follow up with PMD. Rx of ALBUTEROL, AZITHROMYCIN & PREDNISONE given. Patient educated on indication of medication including possible reaction and side effects. Opportunity to ask questions provided and answered.
== END 2019-11-02 00:03 | disposition home or self-care (01) ==
LOC: MED 19:38
DX: J44.1 Chronic obstructive pulmonary disease with (acute) exacerbation (principal); F12.90 Cannabis use, unspecified, uncomplicated; Z79.899 Other long term (current) drug therapy; Z87.891 Personal history of nicotine dependence
CPT/HCPCS: 36415; 71045; 80053; 83880; 84484; 85025; 85610; 85730; 93005; 94640; 96372; 99285; J1885; J7512; Q0092

== ENCOUNTER 2021-02-05 16:38 | Emergency (ER) | payer SELFPAY ==
[~2021-02-05] VITALS: Ht 167.6 cm; Wt 70.8 kg
[2021-02-05 16:46] VITALS: BP 127/76
--- NOTE | 2021-02-05 17:15 | NUR ---
50 Y/O MALE C/O CHEST PAIN X3 DAYS. PRESSURE PAIN 7/10. REPORTS SOB WHEN WALKING. LUNG SOUNDS CLEAR. MEDHX: COPD, SMOKER NKA
--- NOTE | 2021-02-05 17:15 | NUR ---
DR GAY AT BEDSIDE EXAMINING PT
[2021-02-05] MEDS ORDERED: NITROGLYCERIN 0.4 MG TAB SL ONE (17:25)
[2021-02-05] MEDS ORDERED: ALBUTEROL SULFATE/IPRATROPIU 3 ML SOL IH ONE (17:25)
[2021-02-05] MEDS ORDERED: ASPIRIN 325 MG TAB PO ONE (17:25)
--- NOTE | 2021-02-05 17:41 | NUR ---
XRAY AT BEDSIDE
--- NOTE | 2021-02-05 17:41 | NUR ---
Sandra nahum swab and blood sample walked to lab. Joshua, CPT made aware at ER bedside.
[2021-02-05 17:55] LABS: BASOPHILS % (AUTO) 0.4 % (0.0-2.0); EOSINOPHILS # (AUTO) 0.4 K/uL (0-0.4); EOSINOPHILS % (AUTO) 5.3 % (0.0-4.0); HEMATOCRIT 47.8 % (36-52); HEMOGLOBIN 16.3 g/dL (12.0-18.0); LYMPHOCYTES % (AUTO) 27.3 % (20.5-51.1); MEAN CORPUSCULAR HEMOGLOBIN 29 pg (27-31); MEAN CORPUSCULAR HGB CONC 34 g/dL (33-37); MEAN CORPUSCULAR VOLUME 86.6 fL (80-94); MONOCYTES # (AUTO) 0.5 K/uL (0.8-1.0); MONOCYTES % (AUTO) 6.7 % (1.7-9.3); NEUTROPHILS # (AUTO) 4.4 K/uL (1.8-7.7); NEUTROPHILS % (AUTO) 60.3 % (42.2-75.2); PLATELET COUNT (AUTO) 247 K/uL (140-450); RED BLOOD CELL COUNT(AUTO) 5.52 MIL/uL (4.20-6.10); RED CELL DISTRIBUTION WIDTH 13.1 % (11.6-13.7); WHITE BLOOD COUNT (AUTO) 7.3 K/uL (4.8-10.8)
[2021-02-05 18:19] LABS: ALBUMIN 4.4 g/dL (3.4-5.0); ANION GAP 15.1 (8-16); CARBON DIOXIDE 24.4 mmol/L (21-32); POTASSIUM 3.5 mmol/L (3.5-5.1); TOTAL BILIRUBIN 1.6 mg/dL (0.0-1.0)
--- NOTE | 2021-02-05 19:26 | NUR ---
Pt report given to SUSAN RAMOS. Transfer of care at this time.
--- NOTE | 2021-02-05 19:35 | NUR ---
MARY GAY AT BEDSIDE
[2021-02-05] MEDS ORDERED: ALBU0.0912 IH (19:44)
[2021-02-05] MEDS ORDERED: PRED20TA5 PO (19:44)
--- NOTE | 2021-02-05 19:53 | NUR ---
Note isaac in EDM - 02/05/[address] [facility] Patient discharged with v/s stable. Written and verbal after care instructions given and explained. Patient verbalized understanding. Ambulatory with steady gait. All questions addressed prior to discharge. Advised to follow up with PMD.
[2021-02-05 19:55] VITALS: BP 116/78
--- NOTE | 2021-02-05 19:55 | NUR ---
Patient discharged with v/s stable. Written and verbal after care instructions given and explained. Patient alert, oriented and verbalized understanding of instructions. Ambulatory with steady gait. All questions addressed prior to discharge. ID band removed. Patient advised to follow up with PMD. Rx of ALBUEROL SULFATE AND DELTASONE given. Patient educated on indication of medication including possible reaction and side effects. Opportunity to ask questions provided and answered.
== END 2021-02-05 19:55 | disposition home or self-care (01) ==
LOC: MED 16:38
DX: R07.9 Chest pain, unspecified (principal); K80.50 Calculus of bile duct without cholangitis or cholecystitis without obstruction; J40 Bronchitis, not specified as acute or chronic; J44.9 Chronic obstructive pulmonary disease, unspecified; F17.200 Nicotine dependence, unspecified, uncomplicated; Z79.899 Other long term (current) drug therapy
CPT/HCPCS: 36415; 71045; 76705; 80053; 84484; 85025; 87426; 93005; 94640; 99285; Q0092

== ENCOUNTER 2021-02-15 16:09 | Emergency (ER) | payer MEDICAID ==
[~2021-02-15] VITALS: Ht 167.6 cm; Wt 68.9 kg
[~2021-02-15 16:09] MED LIST changes: +PRED20TA5 PO
[2021-02-15 16:15] VITALS: BP 148/92
--- NOTE | 2021-02-15 16:24 | NUR ---
EKG performed in triage room. EKG shown to MD Fragoso, okay for pt to wait in lobby.
[2021-02-15] MEDS: LORazepam 1 MG TAB PO ONE (18:22)
--- NOTE | 2021-02-15 18:37 | NUR ---
50/M PRESENTS TO ED WITH C/O CHEST PAIN RADIATING TO LEFT ARM SINCE THIS MORNING. PATIENT STATES HE WAS RECENTLY SEEN HERE FOR SAME SYMPTOMS AND D/C HOME BUT STATES SYMPTOMS REOCCURRED TODAY. REPORTS 8 "BURNING" PAIN, STATES HE TOOKS NSAIDS PRIOR TO ARRIVAL WITH MILD RELIEF. REPORTS INTERMITTENT EPISODES OF ANXIETY SINCE HIS LAST VISIT, STATING HE RECENTLY STOPPED SMOKING CIGARETTES SINCE HIS LAST VISIT. PATIENT DENIES SOB, FEVER, CHILLS, N/V/D, AND ABDOMINAL PAIN.
[2021-02-15 19:05] LABS: ANION GAP 15.9 (8-16); BASOPHILS # (AUTO) 0.1 K/uL (0.00-0.22); BASOPHILS % (AUTO) 0.9 % (0.0-2.0); CARBON DIOXIDE 26.9 mmol/L (21-32); EOSINOPHILS # (AUTO) 0.4 K/uL (0-0.4); EOSINOPHILS % (AUTO) 4.3 % (0.0-4.0); HEMATOCRIT 48.1 % (36-52); HEMOGLOBIN 16.4 g/dL (12.0-18.0); LYMPHOCYTES # (AUTO) 2.2 K/uL (2.0-11.5); LYMPHOCYTES % (AUTO) 24.7 % (20.5-51.1); MEAN CORPUSCULAR HEMOGLOBIN 30 pg (27-31); MEAN CORPUSCULAR HGB CONC 34 g/dL (33-37); MEAN CORPUSCULAR VOLUME 87.4 fL (80-94); MONOCYTES # (AUTO) 0.5 K/uL (0.8-1.0); MONOCYTES % (AUTO) 5.5 % (1.7-9.3); NEUTROPHILS # (AUTO) 5.8 K/uL (1.8-7.7); NEUTROPHILS % (AUTO) 64.6 % (42.2-75.2); PLATELET COUNT (AUTO) 280 K/uL (140-450); POTASSIUM 4.8 mmol/L (3.5-5.1)
[2021-02-15] MEDS ORDERED: HYDR-4078 PO (20:34)
[2021-02-15 20:35] VITALS: BP 138/73
== END 2021-02-15 20:35 | disposition home or self-care (01) ==
LOC: MED 16:09
DX: R07.9 Chest pain, unspecified (principal); J44.9 Chronic obstructive pulmonary disease, unspecified; Z79.899 Other long term (current) drug therapy
CPT/HCPCS: 36415; 71046; 80048; 84484; 85025; 93005; 99285

== ENCOUNTER 2021-02-27 21:46 | Emergency (ER) | payer MEDICAID ==
[~2021-02-27] VITALS: Ht 167.6 cm; Wt 67.1 kg
[~2021-02-27 21:46] MED LIST changes: +HYDR-4078 PO
[2021-02-27 22:00] VITALS: BP 153/90
[2021-02-27] MEDS ORDERED: METOCLOPRAMIDE 10 MG/2 ML INJ VIAL IVP ONE (22:30)
[2021-02-27] MEDS ORDERED: diphenhydrAMINE 50 MG/ML VIAL IVP ONE (22:30)
[2021-02-27 22:48] LABS: BASOPHILS % (AUTO) 0.7 % (0.0-2.0); EOSINOPHILS # (AUTO) 0.3 K/uL (0-0.4); EOSINOPHILS % (AUTO) 4.4 % (0.0-4.0); HEMATOCRIT 44.6 % (36-52); HEMOGLOBIN 15.2 g/dL (12.0-18.0); LYMPHOCYTES # (AUTO) 2.3 K/uL (2.0-11.5); LYMPHOCYTES % (AUTO) 30.7 % (20.5-51.1); MEAN CORPUSCULAR HEMOGLOBIN 30 pg (27-31); MEAN CORPUSCULAR HGB CONC 34 g/dL (33-37); MEAN CORPUSCULAR VOLUME 86.7 fL (80-94); MONOCYTES # (AUTO) 0.4 K/uL (0.8-1.0); MONOCYTES % (AUTO) 5.8 % (1.7-9.3); NEUTROPHILS # (AUTO) 4.4 K/uL (1.8-7.7); NEUTROPHILS % (AUTO) 58.4 % (42.2-75.2); PLATELET COUNT (AUTO) 256 K/uL (140-450); RED BLOOD CELL COUNT(AUTO) 5.15 MIL/uL (4.20-6.10); RED CELL DISTRIBUTION WIDTH 12.7 % (11.6-13.7); WHITE BLOOD COUNT (AUTO) 7.5 K/uL (4.8-10.8)
[2021-02-27 23:11] LABS: CARBON DIOXIDE 27.5 mmol/L (21-32); CREATININE 0.9 mg/dL (0.6-1.3); POTASSIUM 3.5 mmol/L (3.5-5.1); TOTAL BILIRUBIN 0.7 mg/dL (0.0-1.0)
[2021-02-28] MEDS ORDERED: FAMOTIDINE 20 MG/2 ML VIAL IVP ONE (03:55)
[2021-02-28] MEDS ORDERED: KETOROLAC 30 MG/ML VIAL ONE (07:40)
[2021-02-28] MEDS ORDERED: KETOROLAC 15 MG/ML VIAL IVP ONE (07:40)
[2021-02-28 10:18] VITALS: BP 119/75
== END 2021-02-28 10:18 | disposition home or self-care (01) ==
LOC: MED 21:46
DX: R07.89 Other chest pain (principal); R10.84 Generalized abdominal pain; Z20.822 Contact with and (suspected) exposure to COVID-19; J44.9 Chronic obstructive pulmonary disease, unspecified; Z87.891 Personal history of nicotine dependence; Z79.899 Other long term (current) drug therapy; Z79.51 Long term (current) use of inhaled steroids; Z79.1 Long term (current) use of non-steroidal anti-inflammatories (NSAID)
CPT/HCPCS: 71045; 71260; 74177; 80053; 83690; 84484; 85025; 93005; 96374; 96375; 99285; J1200; J1885; J2765; J3490; Q0092; Q9967; U0003

== ENCOUNTER 2022-01-25 13:59 | Emergency (ER) | payer MEDICAID ==
[~2022-01-25] VITALS: Ht 170.2 cm; Wt 67.1 kg
[2022-01-25 14:01] VITALS: BP 127/90
--- NOTE | 2022-01-25 14:06 | NUR ---
PT AMBULATED TO BED 09.
[2022-01-25] MEDS ORDERED: FAMO-92 PO (14:17)
--- NOTE | 2022-01-25 14:24 | NUR ---
51 Y/O MALE BIB SELF C/O CHEST PAIN AND PRESSURE, SOB, DIZZINESS X2DAYS, DIARRHEA/N/VX1 DAY. DENIES COUGH. SATTING AT 99% RA. STATES 9/10, PRESSURE/INTERMITTENT, RADIATING TO BACK X 2 DAYS. PATIENT DENIES MEDS PRIOR TO ARRIVAL. BED LOCKED IN LOWEST POSITION, SIDE RAILS X 1. NKA PMH: COPD SX: DENIES
[2022-01-25] MEDS ORDERED: ALBUTEROL 0.083% 2.5 MG/3 ML NEBU INH ONE (14:25)
[2022-01-25] MEDS ORDERED: ALBU0.0912 IH (14:25)
--- NOTE | 2022-01-25 14:30 | NUR ---
RT at bedside for neb tx
== END 2022-01-25 14:44 | disposition home or self-care (01) ==
LOC: MED 13:59
DX: K21.9 Gastro-esophageal reflux disease without esophagitis (principal); J44.9 Chronic obstructive pulmonary disease, unspecified; F17.200 Nicotine dependence, unspecified, uncomplicated; F12.90 Cannabis use, unspecified, uncomplicated
CPT/HCPCS: 93005; 94640; 94760; 99283; J7613

== ENCOUNTER 2022-06-26 18:43 | Emergency (ER) | payer MEDICAID ==
[~2022-06-26] VITALS: Ht 170.2 cm; Wt 69.4 kg
[~2022-06-26 18:43] MED LIST changes: +FAMO-92 PO
[2022-06-26 18:53] VITALS: BP 129/87
--- NOTE | 2022-06-26 20:47 | NUR ---
PT TO CHAIR AND EVALUATED BY DR. MONTES.
[2022-06-26] MEDS ORDERED: ALBU0.0912 INH (21:00)
--- NOTE | 2022-06-26 21:50 | NUR ---
pt left without signing discahrge paperwork
== END 2022-06-26 21:50 | disposition home or self-care (01) ==
LOC: MED 18:43
DX: B34.9 Viral infection, unspecified (principal); R06.00 Dyspnea, unspecified; R11.0 Nausea; R42 Dizziness and giddiness; J45.909 Unspecified asthma, uncomplicated; F17.290 Nicotine dependence, other tobacco product, uncomplicated; Z79.899 Other long term (current) drug therapy; Z71.6 Tobacco abuse counseling
CPT/HCPCS: 71046; 93005; 99283

== ENCOUNTER 2022-08-24 19:46 | Emergency (ER) | payer MEDICAID ==
[~2022-08-24] VITALS: Ht 170.2 cm; Wt 65.8 kg
[~2022-08-24 19:46] MED LIST changes: +ALBU0.0912 INH
[2022-08-24 21:00] VITALS: BP 144/94
--- NOTE | 2022-08-24 21:05 | NUR ---
PT TO BED 12
--- NOTE | 2022-08-24 21:10 | NUR ---
DR. BARBOSA AT BEDSIDE
--- NOTE | 2022-08-24 21:33 | NUR ---
LAB AT BEDSIDE
[2022-08-24 21:51] LABS: BASOPHILS % (AUTO) 0.5 % (0.0-2.0); EOSINOPHILS # (AUTO) 0.4 K/uL (0-0.4); EOSINOPHILS % (AUTO) 5.3 % (0.0-4.0); HEMATOCRIT 44.4 % (36-52); HEMOGLOBIN 14.9 g/dL (12.0-18.0); LYMPHOCYTES # (AUTO) 2.3 K/uL (2.0-11.5); MEAN CORPUSCULAR HEMOGLOBIN 28 pg (27-31); MEAN CORPUSCULAR HGB CONC 34 g/dL (33-37); MEAN CORPUSCULAR VOLUME 84.7 fL (80-94); MONOCYTES # (AUTO) 0.4 K/uL (0.8-1.0); MONOCYTES % (AUTO) 4.5 % (1.7-9.3); NEUTROPHILS # (AUTO) 5.2 K/uL (1.8-7.7); NEUTROPHILS % (AUTO) 61.7 % (42.2-75.2); PLATELET COUNT (AUTO) 254 K/uL (140-450); RED BLOOD CELL COUNT(AUTO) 5.24 MIL/uL (4.20-6.10); RED CELL DISTRIBUTION WIDTH 13.4 % (11.6-13.7); WHITE BLOOD COUNT (AUTO) 8.4 K/uL (4.8-10.8)
[2022-08-24 22:07] LABS: ALBUMIN 4.4 g/dL (3.4-5.0); ANION GAP 14.8 (8-16); CARBON DIOXIDE 25.5 mmol/L (21-32); CREATININE 0.9 mg/dL (0.6-1.3); LIPASE 134 U/L (73-393); POTASSIUM 4.3 mmol/L (3.5-5.1); TOTAL BILIRUBIN 0.8 mg/dL (0.0-1.0)
--- NOTE | 2022-08-24 23:31 | NUR ---
PT TO CT
[2022-08-24] MEDS ORDERED: DICYCLOMINE HCL LIQUID 10 MG/5 ML UDC ONE (23:42)
[2022-08-24] MEDS ORDERED: ALUMINUM HYD/MAG/SIMETHICONE 30 ML UDC ONE (23:42)
[2022-08-24] MEDS: LORazepam 1 MG TAB PO ONE (23:49)
[2022-08-24] MEDS: DICYCLOMINE HCL LIQUID 20 MG, ALUMINUM HYD/MAG/SIMETHICONE 30 ML, LIDOCAINE VISCOUS 2% ... PO ONE ×3 (23:52)
[2022-08-25 02:30] VITALS: BP 116/75
--- NOTE | 2022-08-25 02:30 | NUR ---
Patient discharged with v/s stable. Written and verbal after care instructions given and explained. Patient verbalized understanding. Ambulatory with steady gait. All questions addressed prior to discharge. Advised to follow up with PMD.
== END 2022-08-25 02:30 | disposition home or self-care (01) ==
LOC: MED 19:46
DX: F41.9 Anxiety disorder, unspecified (principal); R10.9 Unspecified abdominal pain; J44.9 Chronic obstructive pulmonary disease, unspecified; F12.90 Cannabis use, unspecified, uncomplicated; Z79.899 Other long term (current) drug therapy; Z79.2 Long term (current) use of antibiotics; Z79.1 Long term (current) use of non-steroidal anti-inflammatories (NSAID)
CPT/HCPCS: 36415; 71250; 80053; 83690; 83880; 84484; 85025; 93005; 99284

== ENCOUNTER 2022-08-27 17:54 | Emergency (ER) | payer MEDICAID ==
[~2022-08-27] VITALS: Ht 170.2 cm; Wt 64.4 kg
[2022-08-27 18:16] VITALS: BP 137/93
[2022-08-27] MEDS ORDERED: DICYCLOMINE HCL LIQUID 10 MG/5 ML UDC PO ONE (19:25)
[2022-08-27] MEDS ORDERED: FAMOTIDINE 20 MG TAB PO ONE (19:25)
[2022-08-27] MEDS ORDERED: ALUMINUM HYD/MAG/SIMETHICONE 30 ML UDC PO ONE (19:25)
--- NOTE | 2022-08-27 19:39 | NUR ---
Blood for labwork drawn by log handler. Patient tolerated well.
[2022-08-27 19:46] LABS: BASOPHILS % (AUTO) 0.3 % (0.0-2.0); EOSINOPHILS # (AUTO) 0.4 K/uL (0-0.4); EOSINOPHILS % (AUTO) 4.7 % (0.0-4.0); HEMATOCRIT 46.4 % (36-52); HEMOGLOBIN 15.6 g/dL (12.0-18.0); LYMPHOCYTES # (AUTO) 2.3 K/uL (2.0-11.5); LYMPHOCYTES % (AUTO) 24.3 % (20.5-51.1); MEAN CORPUSCULAR HEMOGLOBIN 29 pg (27-31); MEAN CORPUSCULAR HGB CONC 34 g/dL (33-37); MEAN CORPUSCULAR VOLUME 85.2 fL (80-94); MONOCYTES # (AUTO) 0.4 K/uL (0.8-1.0); MONOCYTES % (AUTO) 4.7 % (1.7-9.3); NEUTROPHILS # (AUTO) 6.1 K/uL (1.8-7.7); PLATELET COUNT (AUTO) 281 K/uL (140-450); RED BLOOD CELL COUNT(AUTO) 5.45 MIL/uL (4.20-6.10); RED CELL DISTRIBUTION WIDTH 13.5 % (11.6-13.7); WHITE BLOOD COUNT (AUTO) 9.3 K/uL (4.8-10.8)
[2022-08-27 20:28] LABS: ALBUMIN 4.7 g/dL (3.4-5.0); ANION GAP 14.1 (8-16); CARBON DIOXIDE 28.1 mmol/L (21-32); CREATININE 0.9 mg/dL (0.6-1.3); POTASSIUM 4.2 mmol/L (3.5-5.1); THYROID STIMULATING HORMONE 2.71 uIU/mL (0.34-3.74); TOTAL BILIRUBIN 0.7 mg/dL (0.0-1.0)
[2022-08-27] MEDS ORDERED: BEN10 PO (20:53)
[2022-08-27] MEDS ORDERED: FAMO-90 PO (20:53)
[2022-08-27 21:22] VITALS: BP 133/93
--- NOTE | 2022-08-27 21:22 | NUR ---
Patient discharged with v/s stable. Written and verbal after care instructions given and explained. Patient alert, oriented and verbalized understanding of instructions. Ambulatory with steady gait. All questions addressed prior to discharge. ID band removed. Patient advised to follow up with PMD. Rx of Bentyl and Pepcid given. Patient educated on indication of medication including possible reaction and side effects. Opportunity to ask questions provided and answered.
== END 2022-08-27 21:22 | disposition home or self-care (01) ==
LOC: MED 17:54
DX: R51.9 Headache, unspecified (principal); R10.9 Unspecified abdominal pain; R07.9 Chest pain, unspecified; R63.0 Anorexia; R53.83 Other fatigue; J44.9 Chronic obstructive pulmonary disease, unspecified; Z79.899 Other long term (current) drug therapy
CPT/HCPCS: 36415; 71045; 80053; 84443; 84484; 85025; 93005; 99285

== ENCOUNTER 2022-08-30 02:45 | Emergency (ER) | payer MEDICAID ==
[~2022-08-30] VITALS: Ht 170.2 cm; Wt 66.7 kg
[~2022-08-30 02:45] MED LIST changes: +BEN10 PO; +FAMO-90 PO
[2022-08-30 03:06] VITALS: BP 126/82
--- NOTE | 2022-08-30 03:45 | NUR ---
MD Olsen at bedside examining pt.
[2022-08-30] MEDS ORDERED: LORazepam 1 MG TAB PO ONE (03:50)
[2022-08-30] MEDS ORDERED: KETOROLAC 30 MG/ML VIAL IM ONE (03:50)
[2022-08-30 03:56] LABS: APPEARANCE,URINE CLOUDY (CLEAR); BILIRUBIN,URINE 2+ (NEGATIVE); BLOOD, URINE NEGATIVE (NEGATIVE); COLOR,URINE YELLOW (YELLOW); LEUKOCYTE ESTERASE ,URINE 1+ (NEGATIVE); NITRITE, URINE NEGATIVE (NEGATIVE); UGLUCOSE TRACE (NEGATIVE)
--- NOTE | 2022-08-30 04:10 | NUR ---
Pt medicated as ordered; Tolerated well.
[2022-08-30 04:21] LABS: RBC,URINE 0-5 /HPF (0-5); WBC,URINE TOO MANY TO COUNT /HPF (0-5)
[2022-08-30] MEDS ORDERED: CEPH-588 PO (04:25)
[2022-08-30] MEDS ORDERED: cefTRIAXone 1,000 MG in LIDOCAINE MPF 1% 2.1 ML IM ONE (04:25)
[2022-08-30] MEDS ORDERED: PYR100 PO (04:25)
[2022-08-30] MEDS ORDERED: cefTRIAXone 1,000 MG VIAL ONE (04:28)
[2022-08-30] MEDS ORDERED: LIDOCAINE MPF 1% 5 ML ONE (04:28)
[2022-08-30 04:40] VITALS: BP 120/67
--- NOTE | 2022-08-30 04:41 | NUR ---
Patient discharged with v/s stable. Written and verbal after care instructions given and explained. Patient alert, oriented and verbalized understanding of instructions. All questions addressed prior to discharge. ID band removed. Patient advised to follow up with PMD. Rx of Keflex, and Pyridium sent to preferred pharmacy. Patient educated on indication of medication including possible reaction and side effects. Opportunity to ask questions provided and answered.
== END 2022-08-30 04:41 | disposition home or self-care (01) ==
LOC: MED 02:45
DX: N39.0 Urinary tract infection, site not specified (principal); J44.9 Chronic obstructive pulmonary disease, unspecified; Z79.899 Other long term (current) drug therapy
CPT/HCPCS: 81001; 87086; 93005; 96372; 99284; J0696; J1885; J2001

== ENCOUNTER 2023-09-26 18:39 | Emergency (ER) | payer MEDICAID ==
[~2023-09-26] VITALS: Ht 167.6 cm; Wt 64.0 kg
[~2023-09-26 18:39] MED LIST changes: +CEPH-588 PO; +PYR100 PO
[2023-09-26 18:45] VITALS: BP 127/80; PULSE 72; RESP 21; TEMP 97.9; O2SAT 99
[2023-09-26 20:24] LABS: BASOPHILS % (AUTO) 0.4 % (0.0-2.0); EOSINOPHILS # (AUTO) 0.2 K/uL (0-0.4); EOSINOPHILS % (AUTO) 3.7 % (0.0-4.0); HEMOGLOBIN 14.8 g/dL (12.0-18.0); LYMPHOCYTES # (AUTO) 1.7 K/uL (2.0-11.5); LYMPHOCYTES % (AUTO) 28.6 % (20.5-51.1); MEAN CORPUSCULAR HEMOGLOBIN 29 pg (27-31); MEAN CORPUSCULAR HGB CONC 34 g/dL (33-37); MEAN CORPUSCULAR VOLUME 85.1 fL (80-94); MONOCYTES # (AUTO) 0.5 K/uL (0.8-1.0); MONOCYTES % (AUTO) 8.6 % (1.7-9.3); NEUTROPHILS # (AUTO) 3.4 K/uL (1.8-7.7); NEUTROPHILS % (AUTO) 58.7 % (42.2-75.2); PLATELET COUNT (AUTO) 219 K/uL (140-450); RED BLOOD CELL COUNT(AUTO) 5.17 MIL/uL (4.20-6.10); RED CELL DISTRIBUTION WIDTH 13.2 % (11.6-13.7); WHITE BLOOD COUNT (AUTO) 5.8 K/uL (4.8-10.8)
[2023-09-26 20:41] LABS: ANION GAP 17.2 (8-16); CALCIUM 9.6 mg/dL (8.5-10.1); CARBON DIOXIDE 24.9 mmol/L (21-32); CREATININE 0.9 mg/dL (0.6-1.3); POTASSIUM 4.1 mmol/L (3.5-5.1)
[2023-09-26 20:50] LABS: ALANINE AMINOTRANSFERASE 16 U/L (12-78); ALBUMIN 4.2 g/dL (3.4-5.0); ALKALINE PHOSPHATASE 88 U/L (50-136); ASPARTATE AMINOTRANSFERASE 12 U/L (15-37); BILIRUBIN,DIRECT 0.2 mg/dL (0.0-0.3); TOTAL PROTEIN, SERUM 8.2 g/dL (6.4-8.2)
[2023-09-26] MEDS ORDERED: OMEP40EC23 PO (21:45)
[2023-09-26] MEDS: ALUMINUM HYD/MAG/SIMETHICONE 30 ML UDC PO ONE (22:04)
[2023-09-26] MEDS: DEXAMETHASONE 4 MG/ML VIAL PO ONE (22:05)
[2023-09-26] MEDS: KETOROLAC 30 MG/ML VIAL IM ONE (22:06)
[2023-09-26 22:12] VITALS: BP 120/76; PULSE 70; RESP 16; O2SAT 95
== END 2023-09-26 22:12 | disposition home or self-care (01) ==
LOC: MED 18:39
DX: R07.9 Chest pain, unspecified (principal); R10.9 Unspecified abdominal pain; M79.10 Myalgia, unspecified site; J44.9 Chronic obstructive pulmonary disease, unspecified; Z79.899 Other long term (current) drug therapy
CPT/HCPCS: 36415; 71045; 74176; 80048; 80076; 83880; 84484; 85025; 93005; 96372; 99285; J1100; J1885; Q0092

== ENCOUNTER 2024-01-23 04:24 | Emergency (ER) | payer MEDICAID ==
[~2024-01-23] VITALS: Ht 170.2 cm; Wt 62.6 kg
[~2024-01-23 04:24] MED LIST changes: +OMEP40EC23 PO
[2024-01-23 04:36] VITALS: BP 134/84; PULSE 61; RESP 20; TEMP 98.2; O2SAT 97
[2024-01-23] MEDS: MORPHINE SULFATE 4 MG/ML SYR IVP ONE (05:59)
[2024-01-23] MEDS: NACL 0.9% 1,000 ML IV ONE (06:00)
[2024-01-23] MEDS ORDERED: TRAM50TA3 PO (06:13)
[2024-01-23] MEDS ORDERED: NAPR-337 PO (06:13)
[2024-01-23 06:17] LABS: BASOPHILS % (AUTO) 0.5 % (0.0-2.0); EOSINOPHILS # (AUTO) 0.3 K/uL (0-0.4); EOSINOPHILS % (AUTO) 3.6 % (0.0-4.0); HEMATOCRIT 45.3 % (36-52); LYMPHOCYTES # (AUTO) 1.4 K/uL (2.0-11.5); LYMPHOCYTES % (AUTO) 19.2 % (20.5-51.1); MEAN CORPUSCULAR HEMOGLOBIN 29 pg (27-31); MEAN CORPUSCULAR HGB CONC 33 g/dL (33-37); MEAN CORPUSCULAR VOLUME 86.9 fL (80-94); MONOCYTES # (AUTO) 0.5 K/uL (0.8-1.0); MONOCYTES % (AUTO) 6.6 % (1.7-9.3); NEUTROPHILS # (AUTO) 5.1 K/uL (1.8-7.7); NEUTROPHILS % (AUTO) 70.1 % (42.2-75.2); PLATELET COUNT (AUTO) 260 K/uL (140-450); RED BLOOD CELL COUNT(AUTO) 5.21 MIL/uL (4.20-6.10); RED CELL DISTRIBUTION WIDTH 13.9 % (11.6-13.7); WHITE BLOOD COUNT (AUTO) 7.3 K/uL (4.8-10.8)
[2024-01-23 06:30] LABS: ANION GAP 14.7 (8-16); CALCIUM 9.1 mg/dL (8.5-10.1); CARBON DIOXIDE 25.9 mmol/L (21-32); POTASSIUM 3.6 mmol/L (3.5-5.1)
[2024-01-23] MEDS: KETOROLAC 30 MG/ML VIAL IVP ONE (06:44)
[2024-01-23 08:11] LABS: APPEARANCE,URINE CLEAR (CLEAR); BILIRUBIN,URINE 1+ (NEGATIVE); BLOOD, URINE NEGATIVE (NEGATIVE); COLOR,URINE YELLOW (YELLOW); LEUKOCYTE ESTERASE ,URINE NEGATIVE (NEGATIVE); NITRITE, URINE NEGATIVE (NEGATIVE); PROTEIN,URINE NEGATIVE (NEGATIVE); UGLUCOSE NEGATIVE (NEGATIVE); UROBILINOGEN,URINE 0.2 EU/dL (0.2 - 1)
[2024-01-23 08:17] LABS: BACTERIA,URINE OCCASSIONAL /HPF (None Seen); CALCIUM OXALATE CRYSTALS,UR 0-10 /HPF (None Seen); ICTOTEST NEGATIVE (NEGATIVE); MUCUS,URINE 1+ /LPF (None Seen); RBC,URINE 0-5 /HPF (0-5); SQUAMOUS EPITHELIAL CELL,UR 0-3 (FEW) /LPF (0-3 (FEW)); WBC,URINE 0-5 /HPF (0-5)
[2024-01-23 08:29] LABS: AMPHETAMINE, URINE NEGATIVE ng/ml (NEG <=1000); BARBITURATE, URINE NEGATIVE ng/ml (NEG <=200); BENZODIAZEPINE, URINE NEGATIVE ng/mL (NEG <=200); CANNABINOID, URINE POSITIVE ng/mL (NEG <=50); COCAINE, URINE NEGATIVE ng/mL (NEG <=300); OPIATE, URINE POSITIVE ng/mL (NEG <=2000); PHENCYCLIDINE SCREEN,URINE NEGATIVE ng/mL (NEG <=25)
[2024-01-23 09:37] VITALS: BP 134/84; PULSE 61; RESP 20; TEMP 98.2; O2SAT 97
== END 2024-01-23 09:36 | disposition left against medical advice (07) ==
LOC: MED 04:24
DX: S33.5XXA Sprain of ligaments of lumbar spine, initial encounter (principal); R10.84 Generalized abdominal pain; J44.9 Chronic obstructive pulmonary disease, unspecified; Z79.899 Other long term (current) drug therapy; X58.XXXA Exposure to other specified factors, initial encounter; Y92.89 Other specified places as the place of occurrence of the external cause; Y93.89 Activity, other specified; Y99.8 Other external cause status
CPT/HCPCS: 36415; 72131; 74176; 80048; 80305; 81001; 85025; 96361; 96374; 96375; 99285; J1885; J2270; J7030